=== PATIENT | male | born 1955 | race Caucasian/White ===

== ENCOUNTER 2018-04-19 20:44 | Emergency (ER) | payer BC, SELFPAY ==
[2018-04-19 21:24] LABS: #Basophils 0.1 thou/uL (0.0-0.2); #Eosinphils 0.1 thou/uL (0.0-0.7); #Lymphocytes 1.4 thou/uL (1.20-3.40); #Monocytes 1.1 thou/uL (0.11-0.59); #Neutrophils 8.3 thou/uL (1.40-6.50); %Basophils 0.8 % (0.0-1.0); %Eosinophils 0.8 % (0.0-10.0); %Lymphocytes 12.6 % (21.0-51.0); %Monocytes 9.8 % (0.0-10.0); %Neutrophils 76.1 % (42.0-75.0); Hemoglobin 15.4 g/dL (14.0-18.0); Mean Corpuscular HGB CONC 35.2 g/dL (32.0-36.0); Mean Corpuscular Hemoglobin 30.2 pg (27.0-31.0); Mean Platelet Volume 8.4 fL (7.4-10.4); Platelet Count 175 thou/uL (130-400); RBC Distribution Width 12.5 % (11.5-14.5); White Blood Cell (WBC) Count 10.9 thou/uL (4.8-10.8)
[2018-04-19] MEDS ORDERED: Diazepam 5 MG TAB ONE (21:29)
[2018-04-19 21:39] LABS: Anion Gap 14 mmol/L (10-20); BUN (Urea Nitrogen) 27 mg/dL (8.4-25.7); CK (CPK) 413 U/L (30-200); Calc. Creatinine Clearance 0 mL/min (70-130); Calcium 9.4 mg/dL (7.8-10.44); Carbon Dioxide 23 mmol/L (23-31); Chloride 106 mmol/L (98-107); Estimated GFR-MDRD 49; Glucose 132 mg/dL (80-115); Potassium 3.9 mmol/L (3.5-5.1); Sodium 139 mmol/L (136-145)
== END 2018-04-19 23:20 | disposition home or self-care (01) ==
LOC: SCSER 20:44
DX: T67.5XXA Heat exhaustion, unspecified, initial encounter (principal); E86.0 Dehydration
CPT/HCPCS: 80048; 82550; 85025; 96360; 96361

== ENCOUNTER 2018-07-28 10:09 | Outpatient (CLI) | payer BC ==
[2018-07-28 11:35] LABS: #Basophils 0.1 thou/uL (0.0-0.2); #Eosinphils 0.2 thou/uL (0.0-0.7); #Lymphocytes 1.1 thou/uL (1.20-3.40); #Monocytes 0.9 thou/uL (0.11-0.59); #Neutrophils 4.3 thou/uL (1.40-6.50); %Basophils 0.9 % (0.0-1.0); %Eosinophils 2.9 % (0.0-10.0); %Lymphocytes 16.7 % (21.0-51.0); %Monocytes 13.2 % (0.0-10.0); %Neutrophils 66.4 % (42.0-75.0); Hemoglobin 15.9 g/dL (14.0-18.0); Mean Corpuscular HGB CONC 33.3 g/dL (32.0-36.0); Mean Corpuscular Hemoglobin 31.5 pg (27.0-31.0); Mean Corpuscular Volume 94.6 fL (78.0-98.0); Mean Platelet Volume 8.2 fL (7.4-10.4); Platelet Count 187 thou/uL (130-400); RBC Distribution Width 12.4 % (11.5-14.5); Red Blood Cell (RBC) Count 5.05 mill/uL (4.70-6.10); White Blood Cell (WBC) Count 6.5 thou/uL (4.8-10.8)
[2018-07-28 11:58] LABS: Anion Gap 13 mmol/L (10-20); BUN (Urea Nitrogen) 12 mg/dL (8.4-25.7); Calc. Creatinine Clearance 0 mL/min (70-130); Calcium 9.6 mg/dL (7.8-10.44); Carbon Dioxide 27 mmol/L (23-31); Chloride 104 mmol/L (98-107); Estimated GFR-MDRD 61; Glucose 107 mg/dL (80-115); Potassium 4.8 mmol/L (3.5-5.1); Sodium 139 mmol/L (136-145)
== END 2018-07-28 10:10 | disposition home or self-care (01) ==
LOC: LABBT 10:09
PROVIDERS: ATTEND Orthopaedic Surgery
DX: Z01.818 Encounter for other preprocedural examination (principal); M75.112 Incomplete rotator cuff tear or rupture of left shoulder, not specified as traumatic
CPT/HCPCS: 80048; 85025; 93005; 93010

== ENCOUNTER 2018-08-05 06:45 | Day surgery (SDC) | payer BC ==
[2018-07-28 10:23] VITALS: BMI 26.5
[2018-08-05] MEDS ORDERED: CEFAZOLIN/Water 2 GM/20 ML SYRINGE ONE (07:00)
[2018-08-05] MEDS ORDERED: Midazolam HCl 2 mg/2 ml Vial ONE (07:22)
[2018-08-05] MEDS ORDERED: Fentanyl 100 MCG/2 ML VIAL ONE ×2 (07:22→08:30)
[2018-08-05] MEDS ORDERED: HYDROcodone/Acetaminophen 5/325 mg Tablet PO PRN ×2 (08:15)
[2018-08-05] MEDS ORDERED: Ondansetron HCl/PF 4 MG/2 ML Vial IVP PRN (08:15)
[2018-08-05] MEDS ORDERED: Ketorolac Tromethamine 30 MG/ML VIAL IVP PRN (08:15)
[2018-08-05] MEDS ORDERED: Fentanyl 100 MCG/2 ML VIAL IV PRN (08:15)
[2018-08-05] MEDS ORDERED: Ropivacaine 0.2% 550 ML 550 ML NERVE BLCK SCH (08:15)
[2018-08-05] MEDS ORDERED: traMADol HCl 50 MG TAB PO PRN ×2 (08:15)
[2018-08-05] MEDS ORDERED: Promethazine HCl 25 MG/ML VIAL IM PRN (08:15)
[2018-08-05] MEDS ORDERED: Zolpidem Tartrate 5 MG TAB PO PRN (08:15)
[2018-08-05] MEDS ORDERED: Ropivacaine 0.5% HCl/PF (150 MG/30 ML VIAL) ONE (10:13)
[2018-08-05] MEDS ORDERED: Ropivacaine 0.2% HCl/PF (40 MG/20 ML VIAL) ONE (10:13)
[2018-08-05] MEDS ORDERED: Bupivacaine HCl 0.5%/Epinephrine 1:200,000/PF 30 ml Vial ONE (10:13)
[2018-08-05] MEDS ORDERED: Ondansetron HCl/PF 4 MG/2 ML Vial ONE (10:50)
--- NOTE | 2018-08-05 13:45 | OP ---
PREOPERATIVE DIAGNOSES: Massive rotator cuff tear and split biceps tendon, left shoulder. POSTOPERATIVE DIAGNOSES: Massive rotator cuff tear and split biceps tendon, left shoulder. SURGEON: Nicholas Cuadra M.D. PRESS CATCHER: Sherwin Dhaliwal PA-C. BLOOD LOSS: 100. SPECIMEN: None. DRAINS: None. COMPLICATIONS: None. DESCRIPTION OF PROCEDURE: Patient was taken to the operating where general anesthesia was induced. The patient was placed in beach chair position, prepped and draped in usual sterile fashion. I made a standard deltoid splitting incision. Anterior inferior acromioplasty was performed. Some massive rotator cuff tear had been repaired previously, did not hold. There was lot of sutures loosened the joint and the tear was split and retracted back to the glenoid. I placed traction sutures and mobili zed the rotator cuff tear sequentially using blunt Jevon elevators. I was able to mobilize the te ndon converging suture starting at the apex working laterally. Distally, the biceps tendon was split. I removed this from superior glenoid tubercle with a #2 FiberWire suture. I then mobi lized the cuff and completed the repair of the cuff down to bone. I tied the cottony Dacron suture a nd repaired this to bone using a SwiveLock device. I placed additional anterior double loaded corksc rew suture anchor and repaired the cuff down to bone with a Devyn-Herson type suture. The tendon was measured and found to be a 7. I drilled with a 7.5 reamer and delivered the tendon into the drill ho le and fixed this with Bio-Tenodesis screw tied sutures over the top. Irrigation was performed. Del toid was repaired back to bone using Ethibond suture. Subcutaneous tissue closed with 2-0 Vicryl, th e skin was closed with colin. Sterile dressings applied and the patient was placed in a splint. T here were no complications.
[2018-08-05] MEDS ORDERED: Glycopyrrolate 0.2 MG/ML 5 ML SYRINGE ONE (14:46)
[2018-08-05] MEDS ORDERED: Lidocaine 1% PF 5 ML VIAL ONE (14:46)
[2018-08-05] MEDS ORDERED: ePHEDrine/0.9% NaCl/PF SYRINGE 50 mg/10 ml ONE (14:46)
[2018-08-05] MEDS ORDERED: PHENYLEPHRINE-NS 100 MCG/ML 10 ML SYRINGE ONE (14:46)
[2018-08-05] MEDS ORDERED: PROPOFOL 200 MG/20 ML VIAL ONE (14:46)
== END 2018-08-05 14:00 | disposition home or self-care (01) ==
LOC: SDC 06:45
PROVIDERS: ATTEND Orthopaedic Surgery
PROC: 0LQ24ZZ Repair Left Shoulder Tendon, Percutaneous Endoscopic Approach (ICD-10-PCS; principal; 2018-08-05)
PROC: 0RHK44Z Insertion of Internal Fixation Device into Left Shoulder Joint, Percutaneous Endoscopic Approach (ICD-10-PCS; principal; 2018-08-05)
DX: M75.112 Incomplete rotator cuff tear or rupture of left shoulder, not specified as traumatic (principal); M75.22 Bicipital tendinitis, left shoulder; I10 Essential (primary) hypertension; K21.9 Gastro-esophageal reflux disease without esophagitis; Z98.890 Other specified postprocedural states; Z79.899 Other long term (current) drug therapy
CPT/HCPCS: 96374; A4306; C1713; G8984-GP-CN; G8985-GP-CN; G8986-GP-CN; J0670; J2001; J2250; J2405; J2704; J2795; J3010

== ENCOUNTER 2020-04-10 07:08 | Outpatient (CLI) | payer BC, OTHER ==
[2020-04-10 18:03] LABS: #Eosinphils 0.3 thou/uL (0.0-0.7); #Lymphocytes 1.5 thou/uL (1.20-3.40); #Monocytes 0.8 thou/uL (0.11-0.59); #Neutrophils 4.3 thou/uL (1.40-6.50); %Basophils 0.7 % (0.0-1.0); %Eosinophils 3.9 % (0.0-10.0); %Lymphocytes 21.3 % (21.0-51.0); %Monocytes 10.9 % (0.0-10.0); %Neutrophils 63.2 % (42.0-75.0); Hemoglobin 15.1 g/dL (14.0-18.0); Mean Corpuscular HGB CONC 34.9 g/dL (32.0-36.0); Mean Corpuscular Volume 91.9 fL (78.0-98.0); Mean Platelet Volume 8.6 fL (7.4-10.4); Platelet Count 162 thou/uL (130-400); RBC Distribution Width 12.7 % (11.5-14.5); Red Blood Cell (RBC) Count 4.72 mill/uL (4.70-6.10); White Blood Cell (WBC) Count 6.9 thou/uL (4.8-10.8)
[2020-04-11 12:07] LABS: SARS-CoV-2 MS2 Positive; SARS-CoV-2 N Gene Negative; SARS-CoV-2 S Gene Negative; SARS-CoV-2 orf1ab Negative
== END 2020-04-10 07:09 | disposition home or self-care (01) ==
LOC: LABBT 07:08
PROVIDERS: ATTEND Orthopaedic Surgery Hand Surgery
DX: Z01.812 Encounter for preprocedural laboratory examination (principal); Z11.59 Encounter for screening for other viral diseases; M67.431 Ganglion, right wrist
CPT/HCPCS: 85025; 87635; U0003

== ENCOUNTER 2020-04-12 05:50 | Day surgery (SDC) | payer BC ==
[2020-04-09 10:07] VITALS: BMI 26.5
[2020-04-12] MEDS ORDERED: Bacitracin Zinc Ointment 30 gm TUBE ONE (06:17)
[2020-04-12] MEDS ORDERED: Betamet Acet/Betamet Na Ph 30 MG/5 ML VIAL ONE (06:17)
[2020-04-12] MEDS ORDERED: Bupivacaine PF 0.5% 30 ML VIAL ONE (06:17)
[2020-04-12] MEDS ORDERED: Sodium Chloride 0.9% 10 ML ONE (06:17)
[2020-04-12] MEDS ORDERED: Fentanyl 100 MCG/2 ML VIAL ONE (06:22)
[2020-04-12] MEDS ORDERED: Midazolam HCl 2 mg/2 ml Vial ONE (06:22)
[2020-04-12] MEDS ORDERED: HYDROcodone/Acetaminophen 5/325 mg Tablet ONE (09:57)
[2020-04-12] MEDS ORDERED: Lidocaine 1% PF 5 ML VIAL ONE (10:50)
[2020-04-12] MEDS ORDERED: Dexamethasone 20 MG/5 ML VIAL ONE (10:50)
[2020-04-12] MEDS ORDERED: Ondansetron PF 4 MG/2 ML Vial ONE (10:50)
[2020-04-12] MEDS ORDERED: PROPOFOL 200 MG/20 ML VIAL ONE (10:50)
[2020-04-12] MEDS ORDERED: Ketorolac Tromethamine 30 MG/ML VIAL ONE (10:50)
--- NOTE | 2020-04-12 15:25 | OP ---
DATE OF PROCEDURE: 04/12/2020 PREOPERATIVE DIAGNOSIS: Right volar wrist ganglion. FINDINGS: Right volar wrist ganglion, 2.5 cm x 1 cm in diameter, connecting from the scapholunate joint radial aspect all the way to the sheath of the first dorsal compartment, splitting the radial artery branches, very intimate with the sidewall radial artery. PROCEDURES PERFORMED: 1. Arthrotomy with ganglion cyst excision, 2.5 cm x 1 cm as described above with almost a 3 mm stalk coming from the scaphoradial joint. 2. First dorsal compartment tenosynovectomy, volar aspect. COMPLICATIONS: None. TOURNIQUET TIME: 27 minutes. BLOOD LOSS: 10 mL. INJECTABLE: Yes, 20 mL of 0.5% Marcaine, 10 given before procedure and taking out after closure of wound and 3 mL of Celestone placed in the area where the cyst cavity was greatest. INDICATIONS: The ganglion cyst with pain, no resolution with conservative treatment. DESCRIPTION OF PROCEDURE: After successful general endotracheal anesthesia, the limb was prepped and draped. The patient had had the time-out done appropriately. We outlined an incision centered over the mass, which was palpable when the wrist was maximally dorsiflexed. We inflated the tourniquet after exsanguination of the limb to 250 mmHg pressure and then injected 10 mL along the incision. We carried the incision through skin and subcutaneous tissue, identified the mass, and finding that it was now enlarged, but it was open obliquely oriented between the peak of the scaphoid and its radial articulation and went underneath the radial artery superficial branch and the dorsal and palmar superficial to deep branch and had adherence to the tenosynovium of the first dorsal compartment. We then began our dissection 1st by the radial artery branches. Then, we followed the stalk slightly more radial to the radial artery into the radioscaphoid joint where it was approximately 3 mm wide stalk. We carried the stalk almost 5 to 6 mm into the joint, released it and left a 4 mm defect in the joint capsule here. We then lifted it up, freed it off the rest of the artery, especially deep and then followed it between the arteries to where it was adhered with the tenosynovium. We then identified tenosynovium, performed a tenosynovectomy almost 1.5 cm long and then freed the entire mass. A small amount of cyst cavity was adhered enough to the arterial wall that had to be under magnification. I released the tourniquet. We obtained hemostasis using combination of Bovie along with vessel clips. We then placed Celestone 3 mL in the wound bed, finished hemostasis, which was excellent and then the wound was closed with interrupted 4-0 nylon in a mattress pattern. The patient then left the operating room without evidence of anesthetic or operative complication. Job ID: [id number]
== END 2020-04-12 10:08 | disposition home or self-care (01) ==
LOC: SDC 05:50
PROVIDERS: ATTEND Orthopaedic Surgery Hand Surgery
PROC: 0LB50ZZ Excision of Right Lower Arm and Wrist Tendon, Open Approach (ICD-10-PCS; principal; 2020-04-12)
DX: M67.431 Ganglion, right wrist (principal); I10 Essential (primary) hypertension; K21.9 Gastro-esophageal reflux disease without esophagitis; Z79.899 Other long term (current) drug therapy
CPT/HCPCS: 88304; 93005; 93010; J0690; J0702; J1100; J1885; J2001; J2250; J2405; J2704; J3010; J3490; S0020

== ENCOUNTER 2021-03-06 07:32 | Outpatient (CLI) | payer MEDICARE | END 2021-03-06 07:33 | disposition home or self-care (01) | LOC: SCSMRI 07:32 | PROVIDERS: ATTEND Orthopaedic Surgery | DX: M75.101 Unspecified rotator cuff tear or rupture of right shoulder, not specified as traumatic (principal) ==

== ENCOUNTER 2021-04-29 15:08 | Outpatient (CLI) | payer MEDICARE ==
[2021-04-29 16:23] LABS: #Eosinphils 0.2 10x3/uL (0.0-0.5); #Monocytes 0.8 10x3/uL (0.0-1.1); #Neutrophils 4.7 10x3/uL (1.5-8.4); %Basophils 0.6 % (0.0-2.0); %Eosinophils 2.4 % (0.0-6.0); %Lymphocytes 19.5 % (18.0-47.0); %Monocytes 10.8 % (0.0-10.0); Mean Corpuscular HGB CONC 33.5 g/dL (32.0-36.0); Mean Corpuscular Hemoglobin 30.6 pg (27.0-33.0); Mean Corpuscular Volume 91.2 fl (81.2-95.1); Mean Platelet Volume 10.8 fl (7.4-10.4); Platelet Count 169 10x3/uL (150-450); RBC Distribution Width 13.8 % (11.5-14.5); Red Blood Cell (RBC) Count 5.23 10x6/uL (4.32-5.72); White Blood Cell (WBC) Count 7.1 10x3/uL (3.5-10.5)
[2021-04-29 16:47] LABS: Anion Gap 13 mmol/L (10-20); BUN (Urea Nitrogen) 17 mg/dL (8.4-25.7); Calc. Creatinine Clearance 0 mL/min (70-130); Calcium 9.8 mg/dL (7.8-10.44); Carbon Dioxide 29 mmol/L (23-31); Chloride 104 mmol/L (98-107); Glucose 107 mg/dL (80-115); Sodium 141 mmol/L (136-145)
[2021-04-30 15:40] LABS: SARS-CoV-2 PCR by NAA Not Detected (NotDetected)
== END 2021-04-29 15:09 | disposition home or self-care (01) ==
LOC: LABBT 15:08
PROVIDERS: ATTEND Orthopaedic Surgery
DX: Z01.818 Encounter for other preprocedural examination (principal); S46.011A Strain of muscle(s) and tendon(s) of the rotator cuff of right shoulder, initial encounter; Z20.822 Contact with and (suspected) exposure to COVID-19
CPT/HCPCS: 80048; 85025; 93005; U0003; U0005; 93010

== ENCOUNTER 2021-08-31 14:14 | Inpatient (IN) | payer MEDICARE ==
[2021-08-31 16:04] VITALS: BMI 25.3
[2021-08-31] MEDS ORDERED: FLU VACC QS2021-22(65YR UP)/PF 240 MCG/0.7 ML SYRINGE IM ONE (16:30)
[2021-08-31] MEDS ORDERED: Ipratropium Oral Inhaler INH PRN (17:46)
[2021-08-31] MEDS ORDERED: Benzonatate 100 MG CAP PO PRN (17:47)
[2021-08-31] MEDS ORDERED: Calcium Carbonate 500 MG ChewTAB PO PRN (17:51)
[2021-08-31] MEDS ORDERED: Ondansetron ODT 4 MG TAB PO PRN (17:51)
[2021-08-31] MEDS ORDERED: Acetaminophen 325 MG TAB PO PRN (17:51)
[2021-08-31] MEDS ORDERED: Electrolyte Replacement Protocol 1 EACH FS SCH (18:00)
[2021-08-31] MEDS ORDERED: Propranolol 10 MG TAB PO SCH (18:45)
[2021-08-31] MEDS ORDERED: Amlodipine 5 MG TAB PO SCH (18:45)
[2021-08-31] MEDS ORDERED: Zinc Sulfate 220 MG CAP PO SCH (18:45)
[2021-08-31] MEDS ORDERED: Ascorbic Acid 500 mg Chewable Tablet PO SCH (18:45)
[2021-08-31 18:59] LABS: CRP (Inflammatory) 14.66 mg/dL (= or < 0.5); Magnesium 2.1 mg/dL (1.6-2.6)
[2021-08-31] MEDS: Enoxaparin Sodium 40 MG/0.4 ML SYRINGE SC SCH ×2 (19:47→20:12)
[2021-08-31] MEDS: Dexamethasone 4 mg/ml Vial SLOW IVP SCH ×2 (19:47→20:11)
[2021-08-31] MEDS ORDERED: Cholecalciferol 1,000 UNITS (25 MCG) TAB PO SCH (21:00)
[2021-09-01 03:56] LABS: #Lymphocytes 0.5 thou/uL (1.20-3.40); #Monocytes 0.9 thou/uL (0.11-0.59); #Neutrophils 4.9 thou/uL (1.40-6.50); %Basophils 0.2 % (0.0-1.0); %Eosinophils 0.2 % (0.0-10.0); %Lymphocytes 7.6 % (21.0-51.0); %Monocytes 14.4 % (0.0-10.0); %Neutrophils 77.6 % (42.0-75.0); Hemoglobin 13.7 g/dL (14.0-18.0); Mean Corpuscular HGB CONC 34.5 g/dL (32.0-36.0); Mean Corpuscular Hemoglobin 32.1 pg (27.0-31.0); Mean Platelet Volume 6.6 fL (7.4-10.4); Platelet Count 247 thou/uL (130-400); RBC Distribution Width 13.4 % (11.5-14.5); Red Blood Cell (RBC) Count 4.27 mill/uL (4.70-6.10); White Blood Cell (WBC) Count 6.3 thou/uL (4.8-10.8)
[2021-09-01 04:14] VITALS: TEMP 97.1
[2021-09-01 04:20] LABS: ALT (SGPT) 44 U/L (8-55); AST (SGOT) 35 U/L (5-34); Albumin 3.3 g/dL (3.4-4.8); Alkaline Phosphatase 60 U/L (40-110); Anion Gap 12 mmol/L (10-20); BUN (Urea Nitrogen) 12 mg/dL (8.4-25.7); Bilirubin, Total 0.6 mg/dL (0.2-1.2); Calc. Creatinine Clearance 96 mL/min (70-130); Calcium 9.1 mg/dL (7.8-10.44); Carbon Dioxide 29 mmol/L (23-31); Chloride 101 mmol/L (98-107); Glucose 145 mg/dL (80-115); Potassium 4.6 mmol/L (3.5-5.1); Protein, Total 6.3 g/dL (5.8-8.1); Sodium 137 mmol/L (136-145)
[2021-09-01] MEDS ORDERED: Ibuprofen 200 MG TAB PO PRN (08:02)
[2021-09-01] MEDS ORDERED: Ascorbic Acid 500 mg Chewable Tablet PO SCH (09:00)
[2021-09-01] MEDS ORDERED: Aspirin 81 mg Enteric Coated Tablet PO SCH (09:00)
[2021-09-01] MEDS ORDERED: Tamsulosin HCl 0.4 MG CAP PO SCH (09:00)
[2021-09-01] MEDS ORDERED: Zinc Sulfate 220 MG CAP PO SCH (09:00)
[2021-09-01] MEDS ORDERED: Non-Formulary Item 1 EACH (Omeprazole [Omeprazole] 20 MG Tablet.Dr) PO SCH (09:00)
[2021-09-01] MEDS ORDERED: Propranolol 10 MG TAB PO SCH (09:00)
[2021-09-01] MEDS ORDERED: Amlodipine 5 MG TAB PO SCH (09:00)
[2021-09-01] MEDS ORDERED: Multivit, Therapeutic 1 TAB PO SCH (09:00)
[2021-09-01] MEDS ORDERED: Enoxaparin Sodium 40 MG/0.4 ML SYRINGE SC SCH (21:00)
== END 2021-09-01 08:27 | disposition home or self-care (01) | DRG 177 ==
LOC: IMCU/EMU 15:45
PROVIDERS: ADMIT Hospitalist; ATTEND Internal Medicine
PROC: 8E0ZXY6 Isolation (ICD-10-PCS; principal; 2021-08-31)
DX: U07.1 COVID-19 (principal); J12.82 Pneumonia due to coronavirus disease 2019; R09.02 Hypoxemia; I10 Essential (primary) hypertension; Z87.891 Personal history of nicotine dependence; Z79.899 Other long term (current) drug therapy
CPT/HCPCS: 36415; 80053; 83735; 85025; 86140; J1100; J1650

== ENCOUNTER 2023-04-16 19:30 | Outpatient (CLI) | payer MEDICARE | END 2023-04-16 19:31 | disposition home or self-care (01) | LOC: SLEEPLAB 19:30 | PROVIDERS: ATTEND Family Medicine | DX: G47.33 Obstructive sleep apnea (adult) (pediatric) (principal); R06.83 Snoring; R53.83 Other fatigue; G47.10 Hypersomnia, unspecified; E66.9 Obesity, unspecified; R09.02 Hypoxemia; Z68.26 Body mass index [BMI] 26.0-26.9, adult | CPT/HCPCS: 95811 ==

== ENCOUNTER 2024-08-01 13:26 | Outpatient (CLI) | payer MEDICARE | END 2024-08-01 13:27 | disposition home or self-care (01) | LOC: BICRAD 13:26 | PROVIDERS: ATTEND Family Medicine | DX: M79.671 Pain in right foot (principal) ==

== ENCOUNTER 2024-09-18 11:21 | Outpatient (CLI) | payer MEDICARE | END 2024-09-18 11:22 | disposition home or self-care (01) | LOC: BICMRI 11:21 | PROVIDERS: ATTEND Family Medicine | DX: M79.671 Pain in right foot (principal); M72.2 Plantar fascial fibromatosis; S96.911A Strain of unspecified muscle and tendon at ankle and foot level, right foot, initial encounter | CPT/HCPCS: 70210 ==

== ENCOUNTER 2025-05-31 13:50 | Outpatient (CLI) | payer BC, MEDICARE | END 2025-05-31 13:51 | disposition home or self-care (01) | LOC: BICRAD 13:50 | PROVIDERS: ATTEND Family Medicine | DX: J18.9 Pneumonia, unspecified organism (principal) | CPT/HCPCS: 71046 ==